=== PATIENT | male | born 1960 | race Caucasian/White ===

== ENCOUNTER 2023-05-10 10:45 | Outpatient (REF) | payer OTHER, SELFPAY ==
[2023-05-14 16:23] LABS: Helicobacter pylori Ag, Feces Negative (Negative)
== END 2023-05-10 10:46 | disposition home or self-care (01) ==
LOC: LBN 10:45
PROVIDERS: PCP Nurse Practitioner Family; Visit Provider Nurse Practitioner Family
DX: K27.9 Peptic ulcer, site unspecified, unspecified as acute or chronic, without hemorrhage or perforation (principal)
CPT/HCPCS: 87338